=== PATIENT | male | born 1980 | race Caucasian/White ===

== ENCOUNTER 2022-04-02 10:31 | Emergency (ER) | payer BC ==
[2022-04-02 11:16] LABS: #Monocytes 0.4 10x3/uL (0.0-1.1); #Neutrophils 4.4 10x3/uL (1.5-8.4); %Basophils 0.3 % (0.0-2.0); %Eosinophils 0.5 % (0.0-6.0); %Lymphocytes 20.3 % (18.0-47.0); %Monocytes 6.4 % (0.0-10.0); %Neutrophils 72.3 % (40.0-75.0); Hemoglobin 14.8 g/dL (13.5-17.5); Mean Corpuscular HGB CONC 35.7 g/dL (32.0-36.0); Mean Corpuscular Hemoglobin 29.2 pg (27.0-33.0); Mean Corpuscular Volume 81.8 fl (81.2-95.1); Mean Platelet Volume 11.1 fl (7.4-10.4); Platelet Count 146 10x3/uL (150-450); RBC Distribution Width 13.2 % (11.5-14.5); Red Blood Cell (RBC) Count 5.06 10x6/uL (4.32-5.72); White Blood Cell (WBC) Count 6.1 10x3/uL (3.5-10.5)
[2022-04-02] MEDS ORDERED: Ondansetron ODT 4 MG TAB ONE (11:17)
[2022-04-02 11:22] LABS: ALT (SGPT) 63 U/L (8-55); AST (SGOT) 47 U/L (5-34); Albumin 4.1 g/dL (3.5-5.0); Alkaline Phosphatase 86 U/L (40-110); Anion Gap 17 mmol/L (10-20); BUN (Urea Nitrogen) 14 mg/dL (8.9-20.6); Bilirubin, Total 0.9 mg/dL (0.2-1.2); Calc. Creatinine Clearance 0 mL/min (70-130); Calcium 9.2 mg/dL (7.8-10.44); Carbon Dioxide 23 mmol/L (22-29); Chloride 98 mmol/L (98-107); Estimated GFR 50; Globulin 3.3 g/dL (2.4-3.5); Glucose 166 mg/dL (70-105); Potassium 3.7 mmol/L (3.5-5.1); Protein, Total 7.4 g/dL (6.0-8.3); Sodium 134 mmol/L (136-145)
[2022-04-02] MEDS ORDERED: Ketorolac Tromethamine 30 MG/ML VIAL ONE (12:08)
[2022-04-02] MEDS ORDERED: Ondansetron PF 4 MG/2 ML Vial ONE (12:09)
[2022-04-02] MEDS ORDERED: Promethazine HCl 25 MG/ML VIAL ONE (12:59)
[2022-04-02] MEDS ORDERED: Acetaminophen/Codeine 30-300mg Tablet ONE (13:02)
[2022-04-02] MEDS ORDERED: Dicyclomine 20 MG TAB PO SCH (14:00)
[2022-04-02 14:35] LABS: Amphetamine Not Detected (NotDetected); Barbiturates Screen Not Detected (NotDetected); Benzodiazepine Screen Detected (NotDetected); Cocaine Metabolite Screen Not Detected (NotDetected); Methadone Not Detected (NotDetected); Methamphetamine Not Detected (NotDetected); Opiate Screen Not Detected (NotDetected); Oxycodone Screen Not Detected (NotDetected); Phencyclidine (PCP) Not Detected (NotDetected); THC/Cannabinoid Screen Detected (NotDetected); Tricyclic Screen Not Detected (NotDetected)
== END 2022-04-02 15:00 | disposition home or self-care (01) ==
LOC: CSHERS 10:31
DX: R11.2 Nausea with vomiting, unspecified (principal); Z20.822 Contact with and (suspected) exposure to COVID-19; F17.200 Nicotine dependence, unspecified, uncomplicated; K21.9 Gastro-esophageal reflux disease without esophagitis
CPT/HCPCS: 80053; 80306; 85025; 87593; 87804; 96361; 96374; 96375; J1885; J2405; J2550; Q0162; U0003; U0005

== ENCOUNTER 2022-04-04 06:38 | Emergency (ER) | payer BC ==
[2022-04-04] MEDS ORDERED: Pantoprazole 40 MG VIAL ONE ×2 (08:08)
[2022-04-04] MEDS ORDERED: Metoclopramide HCl 10 MG/2 ML VIAL ONE (08:10)
[2022-04-04] MEDS ORDERED: diphenhydrAMINE 50 MG/ML VIAL ONE (08:10)
[2022-04-04] MEDS ORDERED: Haloperidol Lactate 5 MG/ML VIAL ONE (08:11)
[2022-04-04 08:27] LABS: #Eosinphils 0.2 10x3/uL (0.0-0.5); #Monocytes 0.8 10x3/uL (0.0-1.1); #Neutrophils 4.7 10x3/uL (1.5-8.4); %Basophils 0.5 % (0.0-2.0); %Eosinophils 2.2 % (0.0-6.0); %Lymphocytes 25.1 % (18.0-47.0); %Monocytes 10.9 % (0.0-10.0); %Neutrophils 60.4 % (40.0-75.0); Mean Corpuscular HGB CONC 35.1 g/dL (32.0-36.0); Mean Corpuscular Hemoglobin 29.6 pg (27.0-33.0); Mean Corpuscular Volume 84.2 fl (81.2-95.1); Mean Platelet Volume 11.6 fl (7.4-10.4); Platelet Count 203 10x3/uL (150-450); RBC Distribution Width 12.9 % (11.5-14.5); Red Blood Cell (RBC) Count 5.07 10x6/uL (4.32-5.72); White Blood Cell (WBC) Count 7.7 10x3/uL (3.5-10.5)
[2022-04-04 08:45] LABS: ALT (SGPT) 88 U/L (8-55); AST (SGOT) 58 U/L (5-34); Albumin 4.1 g/dL (3.5-5.0); Alkaline Phosphatase 77 U/L (40-110); Anion Gap 16 mmol/L (10-20); BUN (Urea Nitrogen) 15 mg/dL (8.9-20.6); Bilirubin, Total 0.7 mg/dL (0.2-1.2); CK (CPK) 124 U/L (30-200); Calc. Creatinine Clearance 0 mL/min (70-130); Calcium 9.2 mg/dL (7.8-10.44); Carbon Dioxide 24 mmol/L (22-29); Chloride 100 mmol/L (98-107); Estimated GFR 81; Globulin 3.2 g/dL (2.4-3.5); Glucose 114 mg/dL (70-105); Lipase 24 U/L (8-78); Potassium 3.5 mmol/L (3.5-5.1); Protein, Total 7.3 g/dL (6.0-8.3); Sodium 136 mmol/L (136-145)
== END 2022-04-04 09:30 | disposition home or self-care (01) ==
LOC: CSHERS 06:38
DX: R11.10 Vomiting, unspecified (principal); K21.9 Gastro-esophageal reflux disease without esophagitis; F17.200 Nicotine dependence, unspecified, uncomplicated; Z79.899 Other long term (current) drug therapy
CPT/HCPCS: 36415; 80053; 82550; 83690; 85025; 96361; 96374; 96375; C9113; J1200; J1630; J2765

== ENCOUNTER 2022-05-06 07:23 | Day surgery (SDC) | payer BC ==
[2022-05-01 14:19] VITALS: BMI 34.0
[2022-05-06] MEDS ORDERED: PROPOFOL 20 ML ONE ×2 (08:39→09:53)
[2022-05-06] MEDS ORDERED: Lidocaine 2% MPF 10 ML AMP (For Epidural Use) ONE (08:46)
[2022-05-06] MEDS ORDERED: EPINEPHrine 1 MG/10 ML Abboject SYRINGE ONE (09:12)
== END 2022-05-06 10:07 | disposition home or self-care (01) ==
LOC: CSHSDC 07:23
PROVIDERS: ATTEND Surgery
PROC: 0DB78ZX Excision of Stomach, Pylorus, Via Natural or Artificial Opening Endoscopic, Diagnostic (ICD-10-PCS; principal; 2022-05-06)
PROC: 0DB98ZX Excision of Duodenum, Via Natural or Artificial Opening Endoscopic, Diagnostic (ICD-10-PCS; principal; 2022-05-06)
DX: K29.80 Duodenitis without bleeding (principal); K29.60 Other gastritis without bleeding; K21.9 Gastro-esophageal reflux disease without esophagitis; K44.9 Diaphragmatic hernia without obstruction or gangrene; G43.909 Migraine, unspecified, not intractable, without status migrainosus; G89.29 Other chronic pain; F41.9 Anxiety disorder, unspecified; R91.1 Solitary pulmonary nodule; E66.9 Obesity, unspecified; Z68.33 Body mass index [BMI] 33.0-33.9, adult; Z87.11 Personal history of peptic ulcer disease; Z79.899 Other long term (current) drug therapy; Z88.5 Allergy status to narcotic agent; Z91.041 Radiographic dye allergy status; Z87.891 Personal history of nicotine dependence
CPT/HCPCS: 88305; J0171; J2704

== ENCOUNTER 2022-09-10 07:53 | Emergency (ER) | payer BC ==
[2022-09-10] MEDS ORDERED: Fentanyl 100 MCG/2 ML VIAL ONE (08:20)
[2022-09-10] MEDS ORDERED: Ondansetron PF 4 MG/2 ML Vial ONE (08:20)
[2022-09-10] MEDS ORDERED: Pantoprazole 40 MG VIAL ONE (08:21)
[2022-09-10 08:44] LABS: #Monocytes 0.8 10x3/uL (0.0-1.1); #Neutrophils 5.7 10x3/uL (1.5-8.4); %Basophils 0.3 % (0.0-2.0); %Eosinophils 0.5 % (0.0-6.0); %Lymphocytes 16.4 % (18.0-47.0); %Monocytes 9.9 % (0.0-10.0); %Neutrophils 72.6 % (40.0-75.0); Hemoglobin 15.2 g/dL (13.5-17.5); Mean Corpuscular HGB CONC 34.5 g/dL (32.0-36.0); Mean Corpuscular Hemoglobin 29.7 pg (27.0-33.0); Mean Corpuscular Volume 85.9 fl (81.2-95.1); Mean Platelet Volume 12.5 fl (7.4-10.4); Platelet Count 189 10x3/uL (150-450); RBC Distribution Width 13.6 % (11.5-14.5); Red Blood Cell (RBC) Count 5.12 10x6/uL (4.32-5.72); White Blood Cell (WBC) Count 7.9 10x3/uL (3.5-10.5)
[2022-09-10 09:56] LABS: Bilirubin Neg (Negative); Blood, Urine Negative (Negative); Clarity Clear (Clear); Glucose, Urine (Dipstick) Normal (Negative); Ketone, Urine Negative (Negative); Leukocyte Negative (Negative); Nitrite Negative (Negative); Protein, Urine (Dipstick) Negative (Neg-Trace); Urobilinogen Normal mg/dL (Less than 2)
[2022-09-10 10:13] LABS: ALT (SGPT) 24 U/L (8-55); AST (SGOT) 13 U/L (5-34); Albumin 3.8 g/dL (3.5-5.0); Alkaline Phosphatase 57 U/L (40-110); Anion Gap 11 mmol/L (10-20); BUN (Urea Nitrogen) 13 mg/dL (8.9-20.6); Bilirubin, Total 0.6 mg/dL (0.2-1.2); CK (CPK) 71 U/L (30-200); Calc. Creatinine Clearance 0 mL/min (70-130); Calcium 8.5 mg/dL (7.8-10.44); Carbon Dioxide 24 mmol/L (22-29); Chloride 107 mmol/L (98-107); Estimated GFR 105; Globulin 2.9 g/dL (2.4-3.5); Glucose 107 mg/dL (70-105); Lipase 167 U/L (8-78); Potassium 3.6 mmol/L (3.5-5.1); Protein, Total 6.7 g/dL (6.0-8.3); Sodium 138 mmol/L (136-145)
[2022-09-10] MEDS ORDERED: Iopamidol 300 61% 100 ML VIAL FS ONE (13:38)
== END 2022-09-10 10:32 | disposition home or self-care (01) ==
LOC: CSHERS 07:53
DX: R10.9 Unspecified abdominal pain (principal); R11.2 Nausea with vomiting, unspecified; K21.9 Gastro-esophageal reflux disease without esophagitis; F17.200 Nicotine dependence, unspecified, uncomplicated
CPT/HCPCS: 36415; 74177; 80053; 81003; 82550; 83690; 84484; 85025; 93005; 96361; 96374; 96375; C9113; J2405; J3010; Q9967

== ENCOUNTER → 2022-10-24 | Emergency (ER) | payer BC ==
[~2022-10-24] MED LIST: Acetaminophen 325 MG TAB PO PRN; Fentanyl 100 MCG/2 ML VIAL ONE; HYDROcodone/Acetaminophen 5/325 mg Tablet PO PRN; Iopamidol 300 61% 100 ML VIAL FS ONE; Ondansetron PF 4 MG/2 ML Vial ONE; Pantoprazole 40 MG VIAL IVP SCH; Pantoprazole 40 MG VIAL ONE; Pantoprazole 80 MG, Admixture Fee 1 EACH in Sodium Chloride 0.9% 100 ML IVPB SCH
[2022-10-24 11:46] LABS: #Monocytes 0.7 10x3/uL (0.0-1.1); #Neutrophils 6.6 10x3/uL (1.5-8.4); %Basophils 0.4 % (0.0-2.0); %Eosinophils 0.4 % (0.0-6.0); %Lymphocytes 14.6 % (18.0-47.0); %Monocytes 7.6 % (0.0-10.0); %Neutrophils 76.8 % (40.0-75.0); Hemoglobin 16.1 g/dL (13.5-17.5); Mean Corpuscular HGB CONC 34.2 g/dL (32.0-36.0); Mean Corpuscular Hemoglobin 29.3 pg (27.0-33.0); Mean Corpuscular Volume 85.8 fl (81.2-95.1); Mean Platelet Volume 11.6 fl (7.4-10.4); Platelet Count 213 10x3/uL (150-450); RBC Distribution Width 13.4 % (11.5-14.5); Red Blood Cell (RBC) Count 5.49 10x6/uL (4.32-5.72); White Blood Cell (WBC) Count 8.5 10x3/uL (3.5-10.5)
[2022-10-24 11:55] LABS: ALT (SGPT) 20 U/L (8-55); AST (SGOT) 20 U/L (5-34); Albumin 4.5 g/dL (3.5-5.0); Alkaline Phosphatase 82 U/L (40-110); Anion Gap 15 mmol/L (10-20); BUN (Urea Nitrogen) 13 mg/dL (8.9-20.6); Bilirubin, Total 0.6 mg/dL (0.2-1.2); Calc. Creatinine Clearance 0 mL/min (70-130); Calcium 9.6 mg/dL (7.8-10.44); Carbon Dioxide 21 mmol/L (22-29); Chloride 105 mmol/L (98-107); Estimated GFR 88; Globulin 3.4 g/dL (2.4-3.5); Glucose 115 mg/dL (70-105); Lipase 122 U/L (8-78); Potassium 3.7 mmol/L (3.5-5.1); Protein, Total 7.9 g/dL (6.0-8.3); Sodium 137 mmol/L (136-145)
[2022-10-24 14:39] LABS: Bilirubin Neg (Negative); Blood, Urine Negative (Negative); Clarity Clear (Clear); Glucose, Urine (Dipstick) Normal (Negative); Ketone, Urine 5 mg/dL (Negative); Leukocyte Negative (Negative); Nitrite Negative (Negative); Protein, Urine (Dipstick) Negative (Neg-Trace); Specific Gravity, Urine 1.015 (1.005-1.030); Urobilinogen Normal mg/dL (Less than 2)
== END | disposition home or self-care (01) ==
LOC: CSHERS 10:45 → CSHTELE 10-25 07:40 → UNDOADMOB 10-25 07:40
DX: K92.2 Gastrointestinal hemorrhage, unspecified (principal); K21.9 Gastro-esophageal reflux disease without esophagitis
CPT/HCPCS: 74177; 80053; 81003; 82274; 83690; 85025; 96365; 96366; 96375; C9113; J2405; J3010; J3490; Q9967

== ENCOUNTER 2022-10-28 07:37 | Observation (INO) | payer BC ==
[2022-10-28] MEDS ORDERED: Ondansetron PF 4 MG/2 ML Vial ONE ×2 (09:05→16:44)
[2022-10-28] MEDS ORDERED: HYDROmorphone 0.5 MG/0.5 ML SYRINGE ONE ×2 (09:06→12:04)
[2022-10-28] MEDS ORDERED: Pantoprazole 40 MG VIAL ONE ×2 (09:06→21:55)
[2022-10-28 09:19] LABS: #Eosinphils 0.2 10x3/uL (0.0-0.5); #Monocytes 0.6 10x3/uL (0.0-1.1); #Neutrophils 6.8 10x3/uL (1.5-8.4); %Basophils 0.3 % (0.0-2.0); %Eosinophils 1.8 % (0.0-6.0); %Lymphocytes 13.3 % (18.0-47.0); %Monocytes 6.3 % (0.0-10.0); %Neutrophils 78.1 % (40.0-75.0); Hemoglobin 15.5 g/dL (13.5-17.5); Mean Corpuscular HGB CONC 34.2 g/dL (32.0-36.0); Mean Corpuscular Hemoglobin 29.4 pg (27.0-33.0); Mean Corpuscular Volume 85.8 fl (81.2-95.1); Mean Platelet Volume 11.6 fl (7.4-10.4); Platelet Count 184 10x3/uL (150-450); RBC Distribution Width 13.1 % (11.5-14.5); Red Blood Cell (RBC) Count 5.28 10x6/uL (4.32-5.72); White Blood Cell (WBC) Count 8.8 10x3/uL (3.5-10.5)
[2022-10-28 09:48] LABS: ALT (SGPT) 20 U/L (8-55); AST (SGOT) 17 U/L (5-34); Albumin 4.2 g/dL (3.5-5.0); Alkaline Phosphatase 65 U/L (40-110); Anion Gap 16 mmol/L (10-20); BUN (Urea Nitrogen) 15 mg/dL (8.9-20.6); Bilirubin, Total 0.4 mg/dL (0.2-1.2); Calc. Creatinine Clearance 0 mL/min (70-130); Calcium 8.9 mg/dL (7.8-10.44); Carbon Dioxide 21 mmol/L (22-29); Chloride 108 mmol/L (98-107); Estimated GFR 95; Globulin 2.8 g/dL (2.4-3.5); Glucose 140 mg/dL (70-105); Lipase 30 U/L (8-78); Potassium 3.9 mmol/L (3.5-5.1); Sodium 141 mmol/L (136-145)
[2022-10-28] MEDS ORDERED: Promethazine HCl 25 MG/ML VIAL IVPB SCH (10:15)
[2022-10-28] MEDS ORDERED: Dicyclomine 10 MG CAP PO PRN (13:34)
[2022-10-28] MEDS ORDERED: Acetaminophen 325 MG TAB PO PRN (13:36)
[2022-10-28] MEDS ORDERED: Ondansetron PF 4 MG/2 ML Vial IVP PRN (13:36)
[2022-10-28] MEDS ORDERED: Iopamidol 300 61% 100 ML VIAL FS ONE (15:54)
[2022-10-28] MEDS: Lactated Ringer's 1,000 ML IV SCH (16:20)
[2022-10-28] MEDS ORDERED: Promethazine HCl 12.5 MG in Sodium Chloride 0.9% 50 ML IVPB SCH (17:45)
[2022-10-28 21:53] LABS: Bilirubin Neg (Negative); Blood, Urine Negative (Negative); Clarity Clear (Clear); Glucose, Urine (Dipstick) Normal (Negative); Ketone, Urine Negative (Negative); Leukocyte Negative (Negative); Nitrite Negative (Negative); Protein, Urine (Dipstick) Negative (Neg-Trace); Urobilinogen Normal mg/dL (Less than 2)
[2022-10-28 22:02] LABS: Amphetamine Not Detected (NotDetected); Barbiturates Screen Not Detected (NotDetected); Benzodiazepine Screen Not Detected (NotDetected); Cocaine Metabolite Screen Not Detected (NotDetected); Methadone Not Detected (NotDetected); Methamphetamine Not Detected (NotDetected); Opiate Screen Not Detected (NotDetected); Oxycodone Screen Not Detected (NotDetected); Phencyclidine (PCP) Not Detected (NotDetected); THC/Cannabinoid Screen Detected (NotDetected); Tricyclic Screen Not Detected (NotDetected)
[2022-10-28] MEDS: Pantoprazole 40 MG VIAL IVP SCH (22:05)
[2022-10-28] MEDS ORDERED: HYDROcodone/Acetaminophen 7.5/325 mg Tablet ONE (22:15)
[2022-10-28] MEDS ORDERED: Hydrocodone-Acetamin 15 ML UDCUP ONE (22:17)
[2022-10-28] MEDS: Hydrocodone-Acetamin 15 ML UDCUP PO PRN (22:18)
[2022-10-28 23:43] VITALS: BMI 29.6
[2022-10-29] MEDS: Lactated Ringer's 1,000 ML IV SCH ×3 (00:14→15:59)
[2022-10-29] MEDS: Hydrocodone-Acetamin 15 ML UDCUP PO PRN (08:04)
[2022-10-29] MEDS: Pantoprazole 40 MG VIAL IVP SCH (08:05)
[2022-10-29 16:27] VITALS: BP 125/85; TEMP 99
[2022-10-29] MEDS ORDERED: Midazolam HCl 2 mg/2 ml Vial ONE (17:21)
[2022-10-29] MEDS ORDERED: Ketamine 50 MG/ML (10ML VIAL) ONE (17:23)
[2022-10-29] MEDS ORDERED: Glycopyrrolate 0.2 MG/ML 5 ML SYRINGE ONE (17:24)
[2022-10-29] MEDS ORDERED: PROPOFOL 20 ML ONE (17:30)
== END 2022-10-29 21:45 | disposition home or self-care (01) ==
LOC: CSHERS 07:37 → CSHERHOLD 14:10 → INTOOBSV 14:10 → CSHTELE 23:36
PROVIDERS: ADMIT Student in an Organized Health Care Education/Training Program; ATTEND Internal Medicine
PROC: 0DB68ZX Excision of Stomach, Via Natural or Artificial Opening Endoscopic, Diagnostic (ICD-10-PCS; principal; 2022-10-29)
DX: K92.0 Hematemesis (principal); R10.32 Left lower quadrant pain; K21.00 Gastro-esophageal reflux disease with esophagitis, without bleeding; K29.50 Unspecified chronic gastritis without bleeding; K44.9 Diaphragmatic hernia without obstruction or gangrene; Z79.899 Other long term (current) drug therapy; Z98.890 Other specified postprocedural states; F17.290 Nicotine dependence, other tobacco product, uncomplicated; K22.89 Other specified disease of esophagus; Z88.5 Allergy status to narcotic agent; Z91.018 Allergy to other foods; Z91.02 Food additives allergy status
CPT/HCPCS: 36415; 74177; 80053; 80306; 81003; 83605; 83690; 84484; 85025; 88305; 96361; 96365; 96375; 96376; C9113; G0378; J1170; J2250; J2405; J2550; J2704; J7120; Q9967

== ENCOUNTER 2023-05-13 09:23 | Inpatient (IN) | payer BC ==
[2023-05-13] MEDS ORDERED: Ondansetron PF 4 MG/2 ML Vial ONE (09:32)
[2023-05-13] MEDS ORDERED: Pantoprazole 40 MG VIAL ONE (09:46)
[2023-05-13 10:04] LABS: #Eosinphils 0.1 10x3/uL (0.0-0.5); #Monocytes 0.8 10x3/uL (0.0-1.1); #Neutrophils 6.9 10x3/uL (1.5-8.4); %Basophils 0.3 % (0.0-2.0); %Eosinophils 1.5 % (0.0-6.0); %Lymphocytes 13.6 % (18.0-47.0); %Monocytes 8.7 % (0.0-10.0); %Neutrophils 75.6 % (40.0-75.0); Hematocrit 50.9 % (38.8-50.0); Hemoglobin 17.4 g/dL (13.5-17.5); Mean Corpuscular HGB CONC 34.2 g/dL (32.0-36.0); Mean Corpuscular Hemoglobin 29.1 pg (27.0-33.0); Mean Corpuscular Volume 85.1 fl (81.2-95.1); Mean Platelet Volume 11.8 fl (7.4-10.4); Platelet Count 249 10x3/uL (150-450); RBC Distribution Width 12.8 % (11.5-14.5); Red Blood Cell (RBC) Count 5.98 10x6/uL (4.32-5.72); White Blood Cell (WBC) Count 9.2 10x3/uL (3.5-10.5)
[2023-05-13 10:12] LABS: PTT 24.4 sec (22.0-33.0); Prothrombin Time 11.2 sec (9.5-12.1)
[2023-05-13] MEDS ORDERED: Lorazepam 2 MG/ML VIAL ONE (10:23)
[2023-05-13 10:31] LABS: ALT (SGPT) 22 U/L (8-55); AST (SGOT) 18 U/L (5-34); Albumin 4.8 g/dL (3.5-5.0); Alkaline Phosphatase 94 U/L (40-110); Anion Gap 19 mmol/L (10-20); BUN (Urea Nitrogen) 21 mg/dL (8.9-20.6); Bilirubin, Total 0.7 mg/dL (0.2-1.2); Calc. Creatinine Clearance 0 mL/min (70-130); Carbon Dioxide 22 mmol/L (22-29); Chloride 101 mmol/L (98-107); Estimated GFR 57; Globulin 4.1 g/dL (2.4-3.5); Glucose 177 mg/dL (70-105); Lipase 26 U/L (8-78); Potassium 4.5 mmol/L (3.5-5.1); Protein, Total 8.9 g/dL (6.0-8.3); Sodium 137 mmol/L (136-145)
[2023-05-13] MEDS ORDERED: Haloperidol Lactate 5 MG/ML VIAL ONE (11:26)
[2023-05-13] MEDS ORDERED: KETAMINE 100 MG/ML (5ML VIAL) ONE (12:39)
[2023-05-13] MEDS ORDERED: Iopamidol 300 61% 100 ML VIAL FS ONE (13:11)
[2023-05-13 13:19] LABS: Lactic Acid 1.7 mmol/L (0.5-2.2)
[2023-05-13] MEDS ORDERED: hydrALAZINE 20 MG/ML VIAL SLOW IVP PRN (13:31)
[2023-05-13] MEDS ORDERED: Pantoprazole 80 MG, Admixture Fee 1 EACH in Sodium Chloride 0.9% 100 ML IVPB SCH (14:00)
[2023-05-13 14:16] LABS: Hematocrit 46.7 % (38.8-50.0); Platelet Count 192 10x3/uL (150-450)
[2023-05-13] MEDS: Sodium Chloride 0.9% 1,000 ML IV SCH (14:47)
[2023-05-13 15:36] VITALS: BMI 33.0
[2023-05-13] MEDS: Ondansetron PF 4 MG/2 ML Vial IVP PRN (16:08)
[2023-05-13 16:38] LABS: Hematocrit 46.3 % (38.8-50.0); Hemoglobin 16.2 g/dL (13.5-17.5); Platelet Count 205 10x3/uL (150-450)
[2023-05-13] MEDS: fentaNYL 50 mcg/mL 1 mL Vial SLOW IVP PRN (17:57)
[2023-05-13] MEDS ORDERED: traMADol HCl 50 MG TAB PO PRN (20:28)
[2023-05-13 21:24] LABS: Hematocrit 44.4 % (38.8-50.0); Hemoglobin 15.4 g/dL (13.5-17.5); Platelet Count 214 10x3/uL (150-450)
[2023-05-13] MEDS: Acetaminophen 325 MG TAB PO PRN (21:50)
[2023-05-13 22:55] LABS: Amphetamine Not Detected (NotDetected); Barbiturates Screen Not Detected (NotDetected); Benzodiazepine Screen Detected (NotDetected); Cocaine Metabolite Screen Not Detected (NotDetected); Methadone Not Detected (NotDetected); Methamphetamine Not Detected (NotDetected); Opiate Screen Not Detected (NotDetected); Oxycodone Screen Not Detected (NotDetected); Phencyclidine (PCP) Not Detected (NotDetected); THC/Cannabinoid Screen Detected (NotDetected); Tricyclic Screen Not Detected (NotDetected)
[2023-05-14] MEDS: fentaNYL 50 mcg/mL 1 mL Vial SLOW IVP PRN (03:51)
[2023-05-14] MEDS: Ondansetron PF 4 MG/2 ML Vial IVP PRN (03:51)
[2023-05-14] MEDS: Acetaminophen 325 MG TAB PO PRN ×3 (07:17→23:41)
[2023-05-14 09:13] LABS: #Eosinphils 0.1 10x3/uL (0.0-0.5); #Monocytes 0.8 10x3/uL (0.0-1.1); #Neutrophils 4.2 10x3/uL (1.5-8.4); %Basophils 0.3 % (0.0-2.0); %Eosinophils 1.4 % (0.0-6.0); %Lymphocytes 20.5 % (18.0-47.0); %Monocytes 11.9 % (0.0-10.0); %Neutrophils 65.6 % (40.0-75.0); Hematocrit 44.9 % (38.8-50.0); Hemoglobin 15.2 g/dL (13.5-17.5); Mean Corpuscular HGB CONC 33.9 g/dL (32.0-36.0); Mean Corpuscular Hemoglobin 29.4 pg (27.0-33.0); Mean Corpuscular Volume 86.8 fl (81.2-95.1); Mean Platelet Volume 11.7 fl (7.4-10.4); Platelet Count 184 10x3/uL (150-450); RBC Distribution Width 13.1 % (11.5-14.5); Red Blood Cell (RBC) Count 5.17 10x6/uL (4.32-5.72); White Blood Cell (WBC) Count 6.4 10x3/uL (3.5-10.5)
[2023-05-14] MEDS: Sodium Chloride 0.9% 1,000 ML IV SCH ×2 (09:37→21:03)
[2023-05-14 10:03] LABS: Anion Gap 16 mmol/L (10-20); BUN (Urea Nitrogen) 17 mg/dL (8.9-20.6); Calc. Creatinine Clearance 134 mL/min (70-130); Calcium 8.9 mg/dL (7.8-10.44); Carbon Dioxide 21 mmol/L (22-29); Chloride 105 mmol/L (98-107); Estimated GFR 90; Glucose 92 mg/dL (70-105); Potassium 3.8 mmol/L (3.5-5.1); Sodium 138 mmol/L (136-145)
[2023-05-14] MEDS ORDERED: Ondansetron PF 4 MG/2 ML Vial ONE (13:40)
[2023-05-14] MEDS ORDERED: fentaNYL 50 mcg/mL 1 mL Vial ONE (13:40)
[2023-05-14] MEDS ORDERED: PROPOFOL 40 ML ONE (13:40)
[2023-05-14] MEDS ORDERED: diphenhydrAMINE 25 MG CAP PO SCH (20:30)
[2023-05-15 09:08] VITALS: BP 121/80; TEMP 97.7
== END 2023-05-15 09:54 | disposition home or self-care (01) | DRG 381 ==
LOC: CSHERS 09:23 → CSHTELE 11:48
PROVIDERS: ADMIT Internal Medicine; ATTEND Family Medicine
PROC: 0DB68ZX Excision of Stomach, Via Natural or Artificial Opening Endoscopic, Diagnostic (ICD-10-PCS; principal; 2023-05-14)
DX: K22.11 Ulcer of esophagus with bleeding (principal); E87.20 Acidosis, unspecified; N17.9 Acute kidney failure, unspecified; K25.4 Chronic or unspecified gastric ulcer with hemorrhage; K21.9 Gastro-esophageal reflux disease without esophagitis; Z91.018 Allergy to other foods; Z88.8 Allergy status to other drugs, medicaments and biological substances; Z91.041 Radiographic dye allergy status; Z79.899 Other long term (current) drug therapy; Z98.890 Other specified postprocedural states; R19.7 Diarrhea, unspecified
CPT/HCPCS: 36415; 74177; 80048; 80053; 80306; 83605; 83690; 85025; 85610; 85730; 88305; 88342; 96361; 96372; 96374; 96375; C9113; J1630; J2060; J2405; J2704; J3010; J3490; J7050; Q9967

== ENCOUNTER 2024-01-13 07:24 | Emergency (ER) | payer BC ==
[2024-01-13] MEDS ORDERED: Ondansetron PF 4 MG/2 ML Vial ONE (07:39)
[2024-01-13] MEDS ORDERED: Famotidine/PF 20 mg/2ml Vial ONE (07:57)
[2024-01-13] MEDS ORDERED: Haloperidol Lactate 5 MG/ML VIAL ONE (07:57)
[2024-01-13 08:05] LABS: #Basophils 0.03 10x3/uL (0.0-0.2); #Eosinphils 0.11 10x3/uL (0.0-0.5); #Monocytes 1.01 10x3/uL (0.0-1.1); #Neutrophils 13.49 10x3/uL (1.5-8.4); %Basophils 0.2 % (0.0-2.0); %Eosinophils 0.7 % (0.0-6.0); %Lymphocytes 11.4 % (18.0-47.0); %Monocytes 6.1 % (0.0-10.0); %Neutrophils 81.1 % (40.0-75.0); Hematocrit 56.3 % (38.8-50.0); Hemoglobin 19.9 g/dL (13.5-17.5); Mean Corpuscular HGB CONC 35.3 g/dL (32.0-36.0); Mean Corpuscular Hemoglobin 30.7 pg (27.0-33.0); Mean Corpuscular Volume 86.7 fL (81.2-95.1); Mean Platelet Volume 12.7 fL (7.4-10.4); Platelet Count 251 10x3/uL (150-450); RBC Distribution Width 13.8 % (11.5-14.5); Red Blood Cell (RBC) Count 6.49 10x6/uL (4.32-5.72); White Blood Cell (WBC) Count 16.6 10x3/uL (3.5-10.5)
[2024-01-13] MEDS ORDERED: HYDROcodone/Acetaminophen 10/325 mg Tablet ONE (10:32)
[2024-01-13 11:12] LABS: Lactic Acid 1.4 mmol/L (0.5-2.2)
[2024-01-13 11:21] LABS: ALT (SGPT) 26 U/L (8-55); AST (SGOT) 27 U/L (5-34); Albumin 3.3 g/dL (3.5-5.0); Alkaline Phosphatase 76 U/L (40-110); Anion Gap 15 mmol/L (10-20); BUN (Urea Nitrogen) 18 mg/dL (8.9-20.6); Bilirubin, Total 0.4 mg/dL (0.2-1.2); Calc. Creatinine Clearance 0 mL/min (70-130); Calcium 8.4 mg/dL (7.8-10.44); Carbon Dioxide 20 mmol/L (22-29); Chloride 108 mmol/L (98-107); Estimated GFR 111; Globulin 3.2 g/dL (2.4-3.5); Glucose 102 mg/dL (70-105); Lipase 39 U/L (8-78); Magnesium 1.8 mg/dL (1.6-2.6); Potassium 3.8 mmol/L (3.5-5.1); Protein, Total 6.5 g/dL (6.0-8.3); Sodium 139 mmol/L (136-145)
== END 2024-01-13 11:40 | disposition home or self-care (01) ==
LOC: CSHERS 07:24
DX: E86.0 Dehydration (principal); E87.20 Acidosis, unspecified; R11.2 Nausea with vomiting, unspecified
CPT/HCPCS: 71045; 80053; 83605; 83690; 83735; 85025; 93005; 96361; 96372; 96374; 96375; J1630; J2405; S0028

== ENCOUNTER 2024-07-01 20:36 | Emergency (ER) | payer BC ==
[2024-07-01] MEDS ORDERED: Droperidol 5 MG/2 ML VIAL ONE (20:46)
[2024-07-01] MEDS ORDERED: diphenhydrAMINE 50 MG/ML VIAL ONE (20:46)
[2024-07-01 21:28] LABS: #Basophils 0.07 10x3/uL (0.0-0.2); #Eosinophils 0.08 10x3/uL (0.0-0.5); #Neutrophils 7.14 10x3/uL (1.5-8.4); %Basophils 0.7 % (0.0-2.0); %Eosinophils 0.8 % (0.0-6.0); %Lymphocytes 18.5 % (18.0-47.0); %Monocytes 11.5 % (0.0-10.0); %Neutrophils 68.1 % (40.0-75.0); Hematocrit 53.8 % (38.8-50.0); Hemoglobin 19.1 g/dL (13.5-17.5); Mean Corpuscular HGB CONC 35.5 g/dL (32.0-36.0); Mean Corpuscular Hemoglobin 29.7 pg (27.0-33.0); Mean Corpuscular Volume 83.5 fL (81.2-95.1); Mean Platelet Volume 12.3 fL (7.4-10.4); Platelet Count 194 10x3/uL (150-450); RBC Distribution Width 13.9 % (11.5-14.5); Red Blood Cell (RBC) Count 6.44 10x6/uL (4.32-5.72); White Blood Cell (WBC) Count 10.5 10x3/uL (3.5-10.5)
[2024-07-01 21:36] LABS: ALT (SGPT) 26 U/L (8-55); Albumin 4.7 g/dL (3.5-5.0); Alkaline Phosphatase 83 U/L (40-110); Anion Gap 20 mmol/L (10-20); BUN (Urea Nitrogen) 16 mg/dL (8.9-20.6); Bilirubin, Total 1.3 mg/dL (0.2-1.2); Calc. Creatinine Clearance 0 mL/min (70-130); Calcium 10.3 mg/dL (7.8-10.44); Carbon Dioxide 23 mmol/L (22-29); Chloride 98 mmol/L (98-107); Estimated GFR 87; Glucose 102 mg/dL (70-105); Lipase 73 U/L (8-78); Potassium 4.7 mmol/L (3.5-5.1); Protein, Total 8.7 g/dL (6.0-8.3); Sodium 136 mmol/L (136-145)
[2024-07-01 21:38] LABS: AST (SGOT) 27 U/L (5-34)
== END 2024-07-01 22:00 | disposition home or self-care (01) ==
LOC: CSHERS 20:36
DX: R11.2 Nausea with vomiting, unspecified (principal)
CPT/HCPCS: 80053; 83690; 85025; 96374; 96375; J1200; J1790